=== PATIENT | male | born 1970 | race Caucasian/White ===

== ENCOUNTER 2024-06-14 06:18 | Outpatient (REF) | payer MEDICARE, SELFPAY ==
[2024-06-14 06:24] LABS: MANUAL DIFF FLAG NO
--- OUTSIDE RECORDS SUMMARY | 2024-06-14 06:24 | XMS_ITS | Clinical Summary ---
Author Organization Unknown Care Team Providers Care Chair Maker Name Role Phone SAMIR BAH MD, ELDER Unavailable Unava virgen BURROWS RN, MAURIZIO Unavailable Unavailable KEATON PT, MARV Unavailable Unavailable FRIGON OT, JUSTO Unavailable Unavailable JAMAR RN, NAHID Unavailable Unavailable Payers Payer Name Policy Type Policy Number Effective Date Expira tion Date MEDICARE.NGS.PDGM [id number] Problems Condition Name Condition Details Condition Category Status Onset Date Resolution Date Last Treatment Date Treating Clinician Comments OTHER COMPLICATION S OF AMPUTATION STUMP Active 2021-06 00:00: 00 HYP CHR KIDNEY DISEASE W STAGE 5 CHR KIDNEY DISEASE OR ESRD Active 03-12 00:00: 00 TYPE 1 DIABETES MELLITUS W DIABETIC CHRONIC KIDNEY DISEASE Active 03-12 00:00: 00 END STAGE RENAL DISEASE Active 03-12 00:00: 00 ANEMIA IN CHRONIC KIDNEY DISEASE Active 03-12 00:00: 00 TYPE 1 DIABETES MELLITUS WITH DIABETIC NEUROPATHY, UNSP Active 03-12 00:00: 00 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 Active 03-12 00:00: 00 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 Active 03-12 00:00: 00 DEPRESSION, UNSPECIFIED Active 03-12 00:00: 00 NEPHROTIC SYNDROME WITH UNSPECIFIED MORPHOLOGIC CHANGES Active 03-12 00:00: 00 SECONDARY HYPERPARATHY ROIDISM OF RENAL ORIGIN Active 03-12 00:00: 00 HYPERLIPIDEM IA, UNSPECIFIED Active 03-12 00:00: 00 DEPENDENCE ON RENAL DIALYSIS Active 03-12 00:00: 00 ACQUIRED ABSENCE OF LEFT LEG ABOVE KNEE Active 03-12 00:00: 00 ACQUIRED ABSENCE OF RIGHT LEG ABOVE KNEE Active 03-12 00:00: 00 PRESSFITTER (CURRENT) USE OF ANTIBIOTICS Active 2021-06- 00:00: 00 PRESSFITTER (CURRENT) USE OF OPIATE ANALGESIC Active 03-12 00:00: 00 Allergies, Adverse Reactions, Alerts Allergy Name Allergy Type Status Severity Reaction(s) Onset Date Inactive Date Treating Clinician Comments ACETAMINOPHE N Propensity to adverse reactions Active 02-25 18:15: 00 CEPHALEXIN Propensity to adverse reactions Active 02-25 18:15: 19 CEPHALOSPORI NS Propensity to adverse reactions Active 02-25 18:16: 12 IBUPROFEN Propensity to adverse reactions Active 02-25 18:16: 27 ASPIRIN Propensity to adverse reactions Active 02-25 18:17: 13 NSAIDS Propensity to adverse reactions Active 02-25 18:17: 26 Medications Ordered Medication Name Filled Medication Name Start Date Stop Date Current Medication? Ordering Clinician Indication Dosage Frequency Signature (SIG) Comments Components atenolol 25 mg tablet 01-15 00:00: 00 03-12 00:00 :00 No [id number] HTN 1 tablet DAILY 1 tablet DAILY (route: oral) Med Classific ation: Cardiovas cular Therapy Agents Ativan 0.5 mg tablet 01-15 00:00: 00 03-12 00:00 :00 No [id number] ANXIETY 1 tablet DAILY 1 tablet DAILY (route: oral) Med Classific ation: Central Nervous System Agents atorvastati n 40 mg tablet 01-15 00:00: 00 03-12 00:00 :00 No [id number] HLD 2 tablet DAILY 2 tablet DAILY (route: oral) Med Classific ation: Cardiovas cular Therapy Agents Auryxia 210 mg iron tablet 01-15 00:00: 00 03-12 00:00 :00 No [id number] SUPPLEMENT 1 tablet WITH MEALS 1 tablet WITH MEALS (route: oral) Med Classific ation: Genitouri nary Therapy calcitriol 0.25 mcg capsule 01-15 00:00: 00 03-12 00:00 :00 No [id number] SUPPLEMENT 1 capsule DAILY 1 capsule DAILY (route: oral) Med Classific ation: Electroly te Balance-N utritiona l Products Cartia XT 240 mg capsule,ext ended release 01-15 00:00: 00 03-12 00:00 :00 No [id number] HTN 1 capsule DAILY 1 capsule DAILY (route: oral) Med Classific ation: Cardiovas cular Therapy Agents coenzyme Q10 200 mg capsule 01-15 00:00: 00 03-12 00:00 :00 No [id number] SUPPLEMENT 1 capsule DAILY 1 capsule DAILY (route: oral) Med Classific ation: Alternati ve Therapy diazepam 2 mg tablet 01-15 00:00: 00 Yes [id number] NEUROPATHY 1-2 tablet BEDTIME 1-2 tablet BEDTIME (route: oral) Med Classific ation: Central Nervous System Agents duloxetine 20 mg capsule,del ayed release 01-15 00:00: 00 03-12 00:00 :00 No [id number] DEPRESSION 2 capsule DAILY 2 capsule DAILY (route: oral) Med Classific ation: Central Nervous System Agents insulin lispro (U-100) 100 unit/mL subcutane s pen 01-15 00:00: 00 03-12 00:00 :00 No [id number] DM 65 unit DAILY 65 unit DAILY (route: subcutaneo ) Med Classific ation: Endocrine omeprazole 20 mg capsule,del ayed release 01-15 00:00: 00 03-12 00:00 :00 No [id number] GERD 1 capsule DAILY 1 capsule DAILY (route: oral) Med Classific ation: Gastroint estinal Therapy Agents ondansetron 4 mg disintegrat ing tablet 01-15 00:00: 00 03-12 00:00 :00 No [id number] NAUSEA 1 tablet EVERY 8 HOURS 1 tablet EVERY 8 HOURS (route: oral) Med Classific ation: Gastroint estinal Therapy Agents oxycodone 5 mg capsule 01-15 00:00: 00 03-12 00:00 :00 No [id number] PAIN 1 capsule EVERY 4 HOURS 1 capsule EVERY 4 HOURS (route: oral) Med Classific ation: Analgesic , Anti-infl ammatory or Antipyret ic Reglan 5 mg tablet 01-15 00:00: 00 03-12 00:00 :00 No [id number] CKD 1 tablet 3 TIMES DAILY 1 tablet 3 TIMES DAILY (route: oral) Med Classific ation: Gastroint estinal Therapy Agents Semglee (insulin glargine-yf gn) 100 unit/mL subcutaneou s solution 01-15 00:00: 00 03-12 00:00 :00 No [id number] DM 32 unit DAILY 32 unit DAILY (route: subcutaneo us) Med Classific ation: Endocrine torsemide 100 mg tablet 01-15 00:00: 00 03-12 00:00 :00 No [id number] FLUID 1 tablet DAILY 1 tablet DAILY (route: oral) Med Classific ation: Cardiovas cular Therapy Agents vitamin B complex tablet 01-15 00:00: 00 03-12 00:00 :00 No [id number] SUPPLEMENT 1 tablet DAILY 1 tablet DAILY (route: oral) Med Classific ation: Electroly te Balance-N utritiona l Products vitamin E 400 unit capsule 01-15 00:00: 00 03-12 00:00 :00 No [id number] SUPPLEMENT 1 capsule DAILY 1 capsule DAILY (route: oral) Med Classific ation: Electroly te Balance-N utritiona l Products Baqsimi 3 mg/actuatio n nasal spray 03-12 00:00: 00 Yes [id number] DM 1 spray NEEDED 1 spray A S NEEDED (route: nasal) Med Classific ation: Endocrine sodium bicarbonate 650 mg tablet 03-12 00:00: 00 05-07 00:00 :00 No [id number] SUPPLEMENT 1 tablet 2 TIMES DAILY 1 tablet 2 TIMES DAILY (route: oral) Med Classific ation: Gastroint estinal Therapy Agents Floranex 1 million cell tablet 03-12 00:00: 00 05-07 00:00 :00 No [id number] SUPPLEMENT 1 tablet 3 TIMES DAILY 1 tablet 3 TIMES DAILY (route: oral) Med Classific ation: Gastroint estinal Therapy Agents methocarbam ol 500 mg tablet 03-12 00:00: 00 05-07 00:00 :00 No [id number] PAIN 2 tablet 3 TIMES DAILY 2 tablet 3 TIMES DAILY (route: oral) Med Classific ation: Locomotor System oxycodone 10 mg tablet 2021-06 00:00: 00 Yes [id number] PAIN 1 tablet EVERY 4 HOURS 1 tablet EVERY 4 HOURS (route: oral) Med Classific ation: Analgesic , Anti-infl ammatory or Antipyret ic Xtampza ER 27 mg capsule sprinkle 2021-06 00:00: 00 05-07 00:00 :00 No [id number] PAIN 1 capsule 2 TIMES DAILY 1 capsule 2 TIMES DAILY (route: oral) Med Classific ation: Analgesic , Anti-infl ammatory or Antipyret ic amoxicillin 500 mg-potassiu m clavulanate 125 mg tablet 2021-06 00:00: 00 Yes [id number] INFECTION 1 tablet DAILY 1 tablet DAILY (route: oral) Med Classific ation: Anti-Infe ctive Agents atenolol 25 mg tablet 2021-06 00:00: 00 Yes [id number] HYN 1 tablet DAILY 1 tablet DAILY (route: oral) Med Classific ation: Cardiovas cular Therapy Agents Ativan 0.5 mg tablet 2021-06 00:00: 00 Yes [id number] ANXIETY 1 tablet DAILY 1 tablet DAILY (route: oral) Med Classific ation: Central Nervous System Agents atorvastati n 80 mg tablet 2021-06 00:00: 00 Yes [id number] HLD 1 tablet DAILY 1 tablet DAILY (route: oral) Med Classific ation: Cardiovas cular Therapy Agents Auryxia 210 mg iron tablet 2021-06 00:00: 00 Yes [id number] SUPPLEMENT 1 tablet 3 TIMES DAILY 1 tablet 3 TIMES DAILY (route: oral) Med Classific ation: Genitouri nary Therapy B Complex-Vit robison B12 tablet 2021-06 00:00: 00 Yes [id number] SUPPLEMENT 1 tablet DAILY 1 tablet DAILY (route: oral) Med Classific ation: Electroly te Balance-N utritiona l Products calcitriol 0.25 mcg capsule 2021-06 00:00: 00 Yes [id number] SUPPLEMENT 1 capsule DAILY 1 capsule DAILY (route: oral) Med Classific ation: Electroly te Balance-N utritiona l Products coenzyme Q10 200 mg capsule 2021-06 00:00: 00 Yes [id number] SUPPLEMENT 1 capsule DAILY 1 capsule DAILY (route: oral) Med Classific ation: Alternati ve Therapy DILT-XR 240 mg capsule, extended release 2021-06 00:00: 00 Yes [id number] HTN 1 capsule DAILY 1 capsule DAILY (route: oral) Med Classific ation: Cardiovas cular Therapy Agents duloxetine 20 mg capsule,del ayed release 2021-06 00:00: 00 Yes [id number] DEPRESSION 2 capsule DAILY 2 capsule DAILY (route: oral) Med Classific ation: Central Nervous System Agents Glucagon Emergency Kit 1 mg solution for injection 2021-06 00:00: 00 Yes [id number] DM 1 mg DAILY 1 mg MARYSOL Y (route: injection) Med Classific ation: Endocrine Lantus Solostar U-100 Insulin 100 unit/mL (3 mL) subcutaneou s pen 2021-06 00:00: 00 Yes [id number] DM 32 unit BEDTIME 32 unit BEDTIME (route: subcutaneo us) Med Classific ation: Endocrine oxycodone 5 mg capsule 2021-06 00:00: 00 Yes [id number] PAIN 1 capsule DAILY 1 capsule DAILY (route: oral) Med Classific ation: Analgesic , Anti-infl ammatory or Antipyret ic torsemide 100 mg tablet 2021-06 00:00: 00 Yes [id number] FLUI 1 tablet DAILY 1 tablet DAILY (route: oral) Med Classific ation: Cardiovas cular Therapy Agents vitamin E (dl, acetate) 180 mg (400 unit) capsule 2021-06 00:00: 00 Yes [id number] SUPPLEMENT 1 capsule DAILY 1 capsule DAILY (route: oral) Med Classific ation: Electroly te Balance-N utritiona l Products Vital Signs Vital Name Observation Time Observation Value Commen ts Temperature 2022-05-07 12:55:00.000 97.1 [degF] Temperature 2022-04-30 12:26:00.000 98.2 [degF] Temperature 2022-04-29 13:13:00.000 97.3 [degF] Temperature 2022-04-24 15:31:00.000 97.4 [degF] Temperature 2022-04-15 13:33:00.000 98.2 [degF] Temperature 2022-04-08 15:45:00.000 98.2 [degF] Temperature 2022-04-01 13:10:00.000 97 [degF] Temperature 2022-03-27 12:08:00.000 97.3 [degF] Temperature 2022-03-23 12:03:00.000 97.2 [degF] Temperature 2022-03-20 17:03:00.000 97.7 [degF] Temperature 2022-03-16 16:49:00.000 98.7 [degF] Temperature 2022-03-12 14:20:00.000 97.8 [degF] BMI (%) 2022-05-07 12:20:02.000 20 kg/m2 BMI (%) 2022-03-12 13:38:25.000 20 kg/m2 Height 2022-05-07 12:19:55.000 72 [in_us] Height 2022-03-12 13:38:13.000 72 [in_us] Pulse 2022-05-07 12:55:00.000 54 /min Pulse 2022-04-30 12:26:00.000 52 /min Pulse 2022-04-29 13:13:00.000 74 /min Pulse 2022-04-24 15:31:00.000 58 /min Pulse 2022-04-15 13:34:00.000 60 /min Pulse 2022-04-08 15:45:00.000 50 /min Pulse 2022-04-01 13:10:00.000 65 /min Pulse 2022-03-27 12:08:00.000 97 /min Pulse 2022-03-23 12:03:00.000 61 /min Pulse 2022-03-20 17:03:00.000 57 /min Pulse 2022-03-16 16:49:00.000 55 /min Pulse 2022-03-16 14:09:00.000 60 /min Pulse 2022-03-12 14:20:00.000 51 /min O2 Saturation (%) 2022-05-07 12:55:00.000 96 % O2 Saturation (%) 2022-04-30 12:26:00.000 98 % O2 Saturation (%) 2022-04-29 13:13:00.000 95 % O2 Saturation (%) 2022-04-24 15:31:00.000 100 % O2 Saturation (%) 2022-04-15 13:33:00.000 99 % O2 Saturation (%) 2022-04-08 15:45:00.000 99 % O2 Saturation (%) 2022-04-01 13:10:00.000 98 % O2 Saturation (%) 2022-03-27 12:08:00.000 96 % O2 Saturation (%) 2022-03-23 12:03:00.000 96 % O2 Saturation (%) 2022-03-20 17:03:00.000 96 % O2 Saturation (%) 2022-03-16 16:49:00.000 95 % O2 Saturation (%) 2022-03-16 14:09:00.000 96 % O2 Saturation (%) 2022-03-12 14:20:00.000 93 % Respirations 2022-05-07 12:55:00.000 18 /min Respirations 2022-04-30 12:26:00.000 16 /min Respirations 2022-04-29 13:13:00.000 18 /min Respirations 2022-04-24 15:31:00.000 18 /min Respirations 2022-04-15 13:33:00.000 18 /min Respirations 2022-04-08 15:45:00.000 16 /min Respirations 2022-04-01 13:10:00.000 18 /min Respirations 2022-03-27 12:08:00.000 18 /min Respirations 2022-03-23 12:03:00.000 18 /min Respirations 2022-03-20 17:03:00.000 18 /min Respirations 2022-03-16 16:49:00.000 17 /min Respirations 2022-03-16 14:09:00.000 18 /min Respirations 2022-03-12 14:20:00.000 18 /min Weight (lbs) 2022-05-07 12:20:02.000 148 [lb_av] Weight (lbs) 2022-03-12 13:38:25.000 150 [lb_av] Systolic Blood Pressure 2022-05-07 12:55:00.000 130 mm [Hg] Systolic Blood Pressure 2022-04-30 12:26:00.000 110 mm [Hg] Systolic Blood Pressure 2022-04-29 13:13:00.000 122 mm [Hg] Systolic Blood Pressure 2022-04-24 15:31:00.000 120 mm [Hg] Systolic Blood Pressure 2022-04-15 13:33:00.000 125 mm [Hg] Systolic Blood Pressure 2022-04-08 15:45:00.000 120 mm [Hg] Systolic Blood Pressure 2022-04-01 13:10:00.000 124 mm [Hg] Systolic Blood Pressure 2022-03-27 12:08:00.000 122 mm [Hg] Systolic Blood Pressure 2022-03-23 12:03:00.000 118 mm [Hg] Systolic Blood Pressure 2022-03-20 17:03:00.000 118 mm [Hg] Systolic Blood Pressure 2022-03-16 16:49:00.000 126 mm [Hg] Systolic Blood Pressure 2022-03-16 14:09:00.000 115 mm [Hg] Systolic Blood Pressure 2022-03-12 14:20:00.000 124 mm [Hg] Diastolic Blood Pressure 2022-05-07 12:55:00.000 66 mm [Hg] Diastolic Blood Pressure 2022-04-30 12:26:00.000 60 mm [Hg] Diastolic Blood Pressure 2022-04-29 13:13:00.000 74 mm [Hg] Diastolic Blood Pressure 2022-04-24 15:31:00.000 75 mm [Hg] Diastolic Blood Pressure 2022-04-15 13:33:00.000 59 mm [Hg] Diastolic Blood Pressure 2022-04-08 15:45:00.000 84 mm [Hg] Diastolic Blood Pressure 2022-04-01 13:10:00.000 68 mm [Hg] Diastolic Blood Pressure 2022-03-27 12:08:00.000 64 mm [Hg] Diastolic Blood Pressure 2022-03-23 12:03:00.000 62 mm [Hg] Diastolic Blood Pressure 2022-03-20 17:03:00.000 64 mm [Hg] Diastolic Blood Pressure 2022-03-16 16:49:00.000 64 mm [Hg] Diastolic Blood Pressure 2022-03-16 14:09:00.000 60 mm [Hg] Diastolic Blood Pressure 2022-03-12 14:20:00.000 64 mm [Hg] Plan of Treatment Planned Activity Planned Date Details Comments Future Scheduled Test SKILLED NU RSE TO ASSESS, EVALUATE, AND DEVELOP AN INDIVIDUALIZED PLAN OF CARE. AGENCY MAY ACCEPT ORDERS FROM CONSULTING PHYSICIANS SN TO OBSERVE/ASSESS RISK FOR FALLS AND INSTRUCT IN FALL PREVENTION, HOME SAFETY, MEDICATION MANAGEMENT, INFECTION PREVENTION, AND NUTRITION MANAGEMENT. SN MAY PERFORM O2 SATURATION LEVEL ON ADMISSION AND PRN FOR TO ASSESS PATIENT, WITH NOTIFICATION TO THE PHYSICIAN IF SATURATION IS 90% IN THE ABSENCE OF MORE SPECIFIC PARAMETERS FROM THE PHYSICIAN. AGENCY MAY PERFORM A RESUMPTION OF CARE VISIT FOLLOWING ANY HOSPITAL ADMISSION. SKILLED NURSE TO ASSESS/EVALUATE CO-MORBID CONDITIONS AND ANY NEW CONDITIONS THAT PRESENT THEMSELVES DURING THIS EPISODE TO IDENTIFY CHANGES AND INTERVENE TO MINIMIZE COMPLICATIONS. LEFT [facility] FROM [facility] IN January ESRD [code = SKILLED NURSE TO ASSESS, EVALUATE, AND DEVELOP AN INDIVIDUALIZED PLAN OF CARE. AGENCY MAY ACCEPT ORDERS FROM CONSULTING PHYSICIANS SN TO OBSERVE/ASSESS RISK FOR FALLS AND INSTRUCT IN FALL PREVENTION, HOME SAFETY, MEDICATION MANAGEMENT, INFECTION PREVENTION, AND NUTRITION MANAGEMENT. SN MAY PERFORM O2 SATURATION LEVEL ON ADMISSION AND PRN FOR TO ASSESS PATIENT, WITH NOTIFICATION TO THE PHYSICIAN IF SATURATION IS 90% IN THE ABSENCE OF MORE SPECIFIC PARAMETERS FROM THE PHYSICIAN. AGENCY MAY PERFORM A RESUMPTION OF CARE VISIT FOLLOWING ANY HOSPITAL ADMISSION. SKILLED NURSE TO ASSESS/EVALUATE CO-MORBID CONDITIONS AND ANY NEW CONDITIONS THAT PRESENT THEMSELVES DURING THIS EPISODE TO IDENTIFY CHANGES AND INTERVENE TO MINIMIZE COMPLICATIONS. LEFT [facility] FROM [facility] IN JANUARY DM1 ESRD] Future Scheduled Test MEDICATION MANAGEMENT; SKILLED NURSE TO REVIEW MEDICATIONS FOR INTERACTIONS, EFFECTIVENESS OF DRUG THERAPY, AND SIGNS/SYMPTOMS OF ADVERSE REACTIONS. MAY INSTRUCT AND REINFORCE MEDICATION TEACHING RELATED TO THE USE OF MEDICATIONS, DOSAGE, FREQUENCY, PURPOSE, SIDE EFFECTS, AND TO REPORT COMPLICATIONS. [code = MEDICATION MANAGEMENT; SKILLED NURSE TO REVIEW MEDICATIONS FOR INTERACTIONS, EFFECTIVENESS OF DRUG THERAPY, AND SIGNS/SYMPTOMS OF ADVERSE REACTIONS. MAY INSTRUCT AND REINFORCE MEDICATION TEACHING RELATED TO THE USE OF MEDICATIONS, DOSAGE, FREQUENCY, PURPOSE, SIDE EFFECTS, AND TO REPORT COMPLICATIONS.] Future Scheduled Test RISK FOR H OSPITALIZATION; SKILLED NURSE TO INSTRUCT PATIENT/CAREGIVER ON RISK FOR HOSPITALIZATION, TEACH SIGNS AND SYMPTOMS THAT PUT PATIENT AT RISK, WHEN TO NOTIFY NURSE OF COMPLICATIONS/DECLINE, AND WHEN TO CALL 911. SKILLED NURSE TO INSTRUCT PATIENT/CAREGIVER ON: SIGNS AND SYMPTOMS TO BE ON ALERT FOR EARLY INTERVENTION, PRIOR TO NEEDING EMERGENCY SERVICES CALL [facility] NURSE TO KEEP MANAGER INTERNAL SYMPTOM REPORT FOR VISIBLE REFERENCE NOTIFY SKILLED NURSE/PHYSICIAN FOR DECLINE IN STATUS WHEN AND HOW TO CALL HOME HEALTH AGENCY FACILITATE PHYSICIAN FOLLOW UP APPOINTMENT IDENTIFY SOCIOECONOMIC CONCERNS AND MAKE APPROPRIATE REFERRAL NEEDED [code = RISK FOR HOSPITALIZATION; SKILLED NURSE TO INSTRUCT PATIENT/CAREGIVER ON RISK FOR HOSPITALIZATION, TEACH SIGNS AND SYMPTOMS THAT PUT PATIENT AT RISK, WHEN TO NOTIFY NURSE OF COMPLICATIONS/DECLINE, AND WHEN TO CALL 911. SKILLED NURSE TO INSTRUCT PATIENT/CAREGIVER ON: SIGNS AND SYMPTOMS TO BE ON ALERT FOR EARLY INTERVENTION, PRIOR TO NEEDING EMERGENCY SERVICES CALL [facility] NURSE TO KEEP MANAGER INTERNAL SYMPTOM REPORT FOR VISIBLE REFERENCE NOTIFY SKILLED NURSE/PHYSICIAN FOR DECLINE IN STATUS WHEN AND HOW TO CALL HOME HEALTH AGENCY FACILITATE PHYSICIAN FOLLOW UP APPOINTMENT IDENTIFY SOCIOECONOMIC CONCERNS AND MAKE APPROPRIATE REFERRAL NEEDED] Future Scheduled Test CARDIOVASC ULAR SYSTEM; SKILLED NURSE TO ASSESS AND TEACH RELATED TO ALTERED CARDIOVASCULAR STATUS TO MINIMIZE COMPLICATIONS AND REDUCE HOSPITALIZATION. [code = CARDIOVASCULAR SYSTEM; SKILLED NURSE TO ASSESS AND TEACH RELATED TO ALTERED CARDIOVASCULAR STATUS TO MINIMIZE COMPLICATIONS AND REDUCE HOSPITALIZATION.] Future Scheduled Test HYPERTENSI ON MANAGEMENT; SKILLED NURSE TO ASSESS/TEACH WARNING SIGNS AND SYMPTOMS TO AVOID HOSPITALIZATION. [code = HYPERTENSION MANAGEMENT; SKILLED NURSE TO ASSESS/TEACH WARNING SIGNS AND SYMPTOMS TO AVOID HOSPITALIZATION.] Future Scheduled Test SKILLED NU RSE TO PERFORM/TEACH INCISION CARE TO LEFT AKA AREA: IRRIGATE/CLEANSE WITH NS APPLY GAUZE AND ABD SECURE WITH LORENZA CHANGE DRESSING EVERY 3 DAYS A WEEK AND PRN FOR DISLODGEMENT [code = SKILLED NURSE TO PERFORM/TEACH INCISION CARE TO LEFT AKA AREA: IRRIGATE/CLEANSE WITH NS APPLY GAUZE AND ABD SECURE WITH LORENZA CHANGE DRESSING EVERY 3 DAYS A WEEK AND PRN FOR DISLODGEMENT ] Future Scheduled Test PAIN MANAG EMENT; SKILLED NURSE TO OBSERVE, ASSESS, AND PROVIDE EDUCATION ON PAIN MANAGEMENT TECHNIQUES. [code = PAIN MANAGEMENT; SKILLED NURSE TO OBSERVE, ASSESS, AND PROVIDE EDUCATION ON PAIN MANAGEMENT TECHNIQUES.] Future Scheduled Test DIABETES M ANAGEMENT; SKILLED NURSE FOR INSTRUCTIONS OF DIABETIC CARE TO INCLUDE: DIET LOW CARB SKIN CARE, SIGNS AND SYMPTOMS OF HYPO/HYPERGLYCEMIA, PROPER ADMINISTRATION OF DIABETIC MEDICATION. SKILLED NURSE TO INSTRUCT ON DIABETIC FOOT CARE AND MONITOR FOR SKIN LESIONS ON LOWER EXTREMITIES. BLOOD GLUCOSE TESTING 4X FREQ. SKILLED NURSE TO ASSESS PATIENT/CAREGIVER ABILITY TO PERFORM AND RECORD BLOOD GLUCOSE TESTING ORDERED AND TO REPORT ABNORMAL FINDINGS TO PHYSICIAN. SKILLED NURSE MAY PERFORM BLOOD GLUCOSE TEST NEEDED. SKILLED NURSE TO REPORT TO PHYSICIAN BLOOD GLUCOSE READINGS GREATER THAN 500 OR LESS THAN 60 SKILLED NURSE TO INSTRUCT PATIENT ON IMPORTANCE OF HGBA1C MONITORING, KIDNEY FUNCTION TEST, EYE AND FOOT EXAMS. [code = DIABETES MANAGEMENT; SKILLED NURSE FOR INSTRUCTIONS OF DIABETIC CARE TO INCLUDE: DIET LOW CARB SKIN CARE, SIGNS AND SYMPTOMS OF HYPO/HYPERGLYCEMIA, PROPER ADMINISTRATION OF DIABETIC MEDICATION. SKILLED NURSE TO INSTRUCT ON DIABETIC FOOT CARE AND MONITOR FOR SKIN LESIONS ON LOWER EXTREMITIES. BLOOD GLUCOSE TESTING 4X FREQ. SKILLED NURSE TO ASSESS PATIENT/CAREGIVER ABILITY TO PERFORM AND RECORD BLOOD GLUCOSE TESTING ORDERED AND TO REPORT ABNORMAL FINDINGS TO PHYSICIAN. SKILLED NURSE MAY PERFORM BLOOD GLUCOSE TEST NEEDED. SKILLED NURSE TO REPORT TO PHYSICIAN BLOOD GLUCOSE READINGS GREATER THAN 500 OR LESS THAN 60 SKILLED NURSE TO INSTRUCT PATIENT ON IMPORTANCE OF HGBA1C MONITORING, KIDNEY FUNCTION TEST, EYE AND FOOT EXAMS.] Future Scheduled Test FALL REDUC TION MANAGEMENT; NURSING TO PROVIDE SKILLED ASSESSMENT, EDUCATION, AND INTERVENTION TO IDENTIFY FALL RISK FACTORS SUCH MEDICATIONS THAT MAY CAUSE DIZZINESS, CHRONIC DISEASES, PSYCHOLOGICAL FACTORS, AND EMPOWER/EDUCATE PATIENT/CAREGIVER TO MINIMIZE FALL RISK. [code = FALL REDUCTION MANAGEMENT; NURSING TO PROVIDE SKILLED ASSESSMENT, EDUCATION, AND INTERVENTION TO IDENTIFY FALL RISK FACTORS SUCH MEDICATIONS THAT MAY CAUSE DIZZINESS, CHRONIC DISEASES, PSYCHOLOGICAL FACTORS, AND EMPOWER/EDUCATE PATIENT/CAREGIVER TO MINIMIZE FALL RISK.] Future Scheduled Test PHYSICAL T HERAPIST TO EVALUATE FOR GAIT BALANCE AND STRENGTHEN [code = PHYSICAL THERAPIST TO EVALUATE FOR GAIT BALANCE AND STRENGTHEN ] Future Scheduled Test OCCUPATION AL THERAPIST TO EVALUATE FOR ADL INDENDENCE [code = OCCUPATIONAL THERAPIST TO EVALUATE FOR ADL INDENDENCE ] Future Scheduled Test PRN VISITS ; PATIENT REQUIRES 3 PRN HALF-WAY VISITS FOR COMPLICATIONS RELATED TO WOUND STATUS [code = PRN VISITS; PATIENT REQUIRES 3 PRN HALF-WAY VISITS FOR COMPLICATIONS RELATED TO WOUND STATUS ] Future Scheduled Test DIALYSIS C ENTER; ALL NEEDS RELATED TO ESRD WILL BE MANAGED BY DIALYSIS CENTER. PATIENT RECEIVES DIALYSIS AT MWF AT HOME PERITONWAL ON OWN. [code = DIALYSIS CENTER; ALL NEEDS RELATED TO ESRD WILL BE MANAGED BY DIALYSIS CENTER. PATIENT RECEIVES DIALYSIS AT MWF AT HOME PERITONWAL ON OWN.] Future Scheduled Test PT EVALUAT ION PERFORMED. NO ADDITIONAL VISITS REQUIRED. PROVIDED SKILLED INTERVENTION INCLUDING HOME SAFETY [code = PT EVALUATION PERFORMED. NO ADDITIONAL VISITS REQUIRED. PROVIDED SKILLED INTERVENTION INCLUDING HOME SAFETY ] Goal 2022-05-07 Patient Goal - HEAL MY WOUND Goal 2022-05-10 Patient Goal - HEAL MY WOUND Goal Provider Goal - A PLAN OF CARE WILL BE ESTABLISHED THAT MEETS THE PATIENTS NEEDS. PATIENT WILL DEMONSTRATE OXYGEN SATURATION WITHIN NORMAL LIMITS OR PATIENTS OPTIMAL LEVEL ESTABLISHED BY THE PHYSICIAN THROUGHOUT CARE. CHANGES TO CO-MORBID CONDITIONS AND ANY NEW CONDITIONS WILL BE IDENTIFIED AND REPORTED TO THE PHYSICIAN. Goal Provider Goal - PATIENT/CAREGIVER TO VERBALIZE, AND CONSISTENTLY DEMONSTRATE EFFECTIVE, SAFE MANAGEMENT OF MEDICATION INCLUDING KNOWLEDGE OF EFFECTIVENESS, POTENTIAL SIDE EFFECTS AND DRUG REACTIONS AND WHEN TO CONTACT THE APPROPRIATE CARE PROVIDER. PATIENT/CAREGIVER WILL BE ABLE TO VERBALIZE UNDERSTANDING OF MEDICATION REGIMEN AND ACCURATELY TAKE MEDICATIONS PRESCRIBED WITHOUT ADVERSE EFFECTS BY DC Goal Provider Goal - PATIENT/CAREGIVER WILL VERBALIZE UNDERSTANDING OF SIGNS AND SYMPTOMS THAT PUT THE PATIENT AT RISK FOR HOSPITALIZATION, WHEN TO NOTIFY SN OF COMPLICATIONS/DECLINE AND WHEN TO CALL 911. Goal Provider Goal - PATIENT / CAREGIVER WILL VERBALIZE/DEMONSTRATE UNDERSTANDING OF MEASURES TO MANAGE ALTERED CARDIOVASCULAR STATUS BY DC Goal Provider Goal - PATIENT / CAREGIVER WILL VERBALIZE/DEMONSTRATE AN ABILITY TO ADHERE TO SELF-MANAGEMENT OF HTN TO MINIMIZE COMPLICATIONS AND AVOID HOSPITALIZATION BY END OF EPISODE. Goal Provider Goal - PATIENT / CAREGIVER WILL VERBALIZE / DEMONSTRATE ABILITY TO PERFORM WOUND CARE. WOUND STATUS WILL IMPROVE EVIDENCED BY A DECREASE IN SIZE, DRAINAGE, ABSENCE OF INFECTION, AND DECREASED PAIN BY DC Goal Provider Goal - PATIENT / CAREGIVER WILL VERBALIZE / DEMONSTRATE UNDERSTANDING OF PAIN CONTROL MEASURES BY NE Goal Provider Goal - PATIENT / CAREGIVER WILL VERBALIZE / DEMONSTRATE AN ABILITY TO ADHERE TO SELF-MANAGEMENT OF DIABETES MANAGEMENT BY DC Goal Provider Goal - PATIENT/CAREGIVER ABLE TO IDENTIFY FALL RISK FACTORS AND IMPLEMENT STRATEGIES TO MINIMIZE FALL RISK. PATIENT/CAREGIVER WILL VERBALIZE/DEMONSTRATE AN ABILITY TO ADHERE TO FALL REDUCTION SELF MANAGEMENT AND LIFE-STYLE CHANGES AT DISCHARGE. PERSONAL GOAL(S) STATED BY PATIENT/CAREGIVER WILL BE MET BY DC [place] Provider Goal - Goal Provider Goal - Goal Provider Goal - Goal Provider Goal - Goal Provider Goal - Reason for Visit PATIENT IN FACILITY AT END OF EPISODE Encounters Start Date/Time End Date/Time Encounter Type Admission Type Attending Clinicians Care Facility Care Department Encounter ID Discharge Date Discharge Status Discharge Condition Discharge Reason Percent Goals Met 2022-03-12 00:00:00 2022-05-10 00:00:00 Outpatient NAHID ANDREWS [facility] [id number] 2022-05-10 00:00:00 DISCHARGED /TRANSFERR ED TO A SHORT-TERM [facility] PATIENT IN FACILITY AT END OF EPISODE HH ONLY - TRANSFER TO HOSPITAL 100.00
[2024-06-14 06:39] LABS: Basophils Absolute Auto 0.1 X10*3/uL (0.0-0.2); Basophils Percent Auto 1.4 % (0-2); Eosinophils Absolute Auto 0.3 X10*3/uL (0.0-0.4); Eosinophils Percent Auto 5.1 % (0-4); Hematocrit 31.5 % (42.0-52.0); Hemoglobin 10.5 g/dl (14.0-18.0); Imm Gran Abs Auto 0.03 X10*3/uL (0.00-0.03); Imm Gran Pct Auto 0.5 % (0.0-0.4); Lymphocytes Absolute Auto 1.4 X10*3/uL (1.2-4.9); Mean Corpuscular HGB Conc 33.3 g/dl (31.0-36.0); Mean Corpuscular Hemoglobin 31.2 pg (27.0-33.0); Mean Corpuscular Volume 93.5 fL (80.0-98.0); Mean Platelet Volume 10.6 fL (9.4-12.4); Monocytes Percent Auto 15.9 % (2-11); Neutrophils Absolute Auto 3.4 x10*3/uL (2.0-8.3); Neutrophils Percent Auto 54.1 % (45-73); Platelet Count 315 X10*3/uL (160-400); Red Blood Count 3.37 X10*6/uL (4.60-5.80); Red Cell Distribution Width 14.7 % (11.0-16.0); White Blood Count 6.2 X10*3/uL (4.8-10.8)
[2024-06-14 06:44] LABS: INTERNATIONAL NORM RATIO 3.5 (0.9-1.1); Prothrombin Time 41.2 SEC (10.9-12.4)
[2024-06-14 06:55] LABS: Alanine Aminotransferase 19 U/L (0-40); Albumin Level 3.1 g/dL (3.5-5.0); Alkaline Phosphatase 99 U/L (39-117); Anion Gap 12 (12-20); Aspartate Amino Transferase 25 U/L (5-37); Bilirubin Total 0.3 mg/dL (0.0-1.0); Blood Urea Nitrogen 21 mg/dL (9-16); Calcium 9.1 mg/dL (8.4-10.2); Carbon Dioxide 26 mmol/L (22-29); Chloride 93 mmol/L (96-108); Estimated Glomerular Filt Rate 17; Glucose Random 76 mg/dL (60-115); Potassium 3.4 mmol/L (3.3-5.1); Sodium 128 mmol/L (135-145); Total Protein 5.7 g/dL (6.5-8.0)
== END 2024-06-14 06:19 | disposition home or self-care (01) ==
LOC: HO.MMNH1L 06:18
PROVIDERS: Visit Provider Nurse Practitioner
DX: M62.59 Muscle wasting and atrophy, not elsewhere classified, multiple sites (principal); N18.6 End stage renal disease
CPT/HCPCS: 36415; 80053; 85025; 85610

== ENCOUNTER 2024-06-15 05:49 | Outpatient (REF) | payer MEDICARE, SELFPAY ==
--- OUTSIDE RECORDS SUMMARY | 2024-06-15 05:51 | XMS_ITS | Clinical Summary ---
Author Organization Unknown Care Team Providers Care Revenue Manager Name Role Phone SAMIR BAH MD, ELDER Unavailable Unava virgen BURROWS RN, MAURIZIO Unavailable Unavailable KEATON PT, MARV Unavailable Unavailable FRIGON OT, JUSTO Unavailable Unavailable JAMAR RN, NAHID Unavailable Unavailable Payers Payer Name Policy Type Policy Number Effective Date Expira tion Date MEDICARE.NGS.PDGM [id number] Problems Condition Name Condition Details Condition Category [...] LEG ABOVE KNEE Active 03-12 00:00: 00 ECHOCARDIOGRAPHER (CURRENT) USE OF ANTIBIOTICS Active 2021-06- 00:00: 00 ECHOCARDIOGRAPHER (CURRENT) USE OF OPIATE ANALGESIC Active 03-12 [...] 01-15 00:00: 00 03-12 00:00 :00 No [id number] HTN 1 tablet DAILY 1 tablet DAILY (route: oral) Med Classific ation: Cardiovas cular Therapy Agents Ativan 0.5 mg tablet 01-15 00:00: 00 03-12 00:00 :00 No [id number] ANXIETY 1 tablet DAILY 1 tablet DAILY (route: oral) Med Classific ation: Central Nervous System Agents atorvastati n 40 mg tablet 01-15 00:00: 00 03-12 00:00 :00 No [id number] HLD 2 tablet DAILY 2 tablet DAILY (route: oral) Med Classific ation: Cardiovas cular Therapy Agents Auryxia 210 mg iron tablet 01-15 00:00: 00 03-12 00:00 :00 No [id number] SUPPLEMENT 1 tablet WITH MEALS 1 tablet WITH MEALS (route: oral) Med Classific ation: Genitouri nary Therapy calcitriol 0.25 mcg capsule 01-15 00:00: 00 03-12 00:00 :00 No [id number] SUPPLEMENT 1 capsule DAILY 1 capsule DAILY (route: oral) Med Classific ation: Electroly te Balance-N utritiona l Products Cartia XT 240 mg capsule,ext ended release 01-15 00:00: 00 03-12 00:00 :00 No [id number] HTN 1 capsule DAILY 1 capsule DAILY (route: oral) Med Classific ation: Cardiovas cular Therapy Agents coenzyme Q10 200 mg capsule 01-15 00:00: 00 03-12 00:00 :00 No [id number] SUPPLEMENT 1 capsule DAILY 1 capsule DAILY (route: oral) Med Classific ation: Alternati ve Therapy diazepam 2 mg tablet 01-15 00:00: 00 Yes [id number] NEUROPATHY 1-2 tablet BEDTIME 1-2 tablet BEDTIME (route: oral) Med Classific ation: Central Nervous System Agents duloxetine 20 mg capsule,del ayed release 01-15 00:00: 00 03-12 00:00 :00 No [id number] DEPRESSION 2 capsule DAILY 2 capsule DAILY (route: oral) Med Classific ation: Central Nervous System Agents insulin lispro (U-100) 100 unit/mL subcutane s pen 01-15 00:00: 00 03-12 00:00 :00 No [id number] DM 65 unit DAILY 65 unit DAILY (route: subcutaneo ) Med Classific ation: Endocrine omeprazole 20 mg capsule,del ayed release 01-15 00:00: 00 03-12 00:00 :00 No [id number] GERD 1 capsule DAILY 1 capsule DAILY (route: oral) Med Classific ation: Gastroint estinal Therapy Agents ondansetron 4 mg disintegrat ing tablet 01-15 00:00: 00 03-12 00:00 :00 No [id number] NAUSEA 1 tablet EVERY 8 HOURS 1 tablet EVERY 8 HOURS (route: oral) Med Classific ation: Gastroint estinal Therapy Agents oxycodone 5 mg capsule 01-15 00:00: 00 03-12 00:00 :00 No [id number] PAIN 1 capsule EVERY 4 HOURS 1 capsule EVERY 4 HOURS (route: oral) Med Classific ation: Analgesic , Anti-infl ammatory or Antipyret ic Reglan 5 mg tablet 01-15 00:00: 00 03-12 00:00 :00 No [id number] CKD 1 tablet 3 TIMES DAILY 1 tablet 3 TIMES DAILY (route: oral) Med Classific ation: Gastroint estinal Therapy Agents Semglee (insulin glargine-yf gn) 100 unit/mL subcutaneou s solution 01-15 00:00: 00 03-12 00:00 :00 No [id number] DM 32 unit DAILY 32 unit DAILY (route: subcutaneo us) Med Classific ation: Endocrine torsemide 100 mg tablet 01-15 00:00: 00 03-12 00:00 :00 No [id number] FLUID 1 tablet DAILY 1 tablet DAILY (route: oral) Med Classific ation: Cardiovas cular Therapy Agents vitamin B complex tablet 01-15 00:00: 00 03-12 00:00 :00 No [id number] SUPPLEMENT 1 tablet DAILY 1 tablet DAILY (route: oral) Med Classific ation: Electroly te Balance-N utritiona l Products vitamin E 400 unit capsule 01-15 00:00: 00 03-12 00:00 :00 No [id number] SUPPLEMENT 1 capsule DAILY 1 capsule DAILY (route: oral) Med Classific ation: Electroly te Balance-N utritiona l Products Baqsimi 3 mg/actuatio n nasal spray 03-12 00:00: 00 Yes [id number] DM 1 spray NEEDED 1 spray A S NEEDED (route: nasal) Med Classific ation: Endocrine sodium bicarbonate 650 mg tablet 03-12 00:00: 00 05-07 00:00 :00 No [id number] SUPPLEMENT 1 tablet 2 TIMES DAILY 1 tablet 2 TIMES DAILY (route: oral) Med Classific ation: Gastroint estinal Therapy Agents Floranex 1 million cell tablet 03-12 00:00: 00 05-07 00:00 :00 No [id number] SUPPLEMENT 1 tablet 3 TIMES DAILY 1 tablet 3 TIMES DAILY (route: oral) Med Classific ation: Gastroint estinal Therapy Agents methocarbam ol 500 mg tablet 03-12 00:00: 00 05-07 00:00 :00 No [id number] PAIN 2 tablet 3 TIMES DAILY 2 tablet 3 TIMES DAILY (route: oral) Med Classific ation: Locomotor System oxycodone 10 mg tablet 2021-06 00:00: 00 Yes [id number] PAIN 1 tablet EVERY 4 HOURS 1 tablet EVERY 4 HOURS (route: oral) Med Classific ation: Analgesic , Anti-infl ammatory or Antipyret ic Xtampza ER 27 mg capsule sprinkle 2021-06 00:00: 00 05-07 00:00 :00 No [id number] PAIN 1 capsule 2 TIMES DAILY 1 capsule 2 TIMES DAILY (route: oral) Med Classific ation: Analgesic , Anti-infl ammatory or Antipyret ic amoxicillin 500 mg-potassiu m clavulanate 125 mg tablet 2021-06 00:00: 00 Yes [id number] INFECTION 1 tablet DAILY 1 tablet DAILY (route: oral) Med Classific ation: Anti-Infe ctive Agents atenolol 25 mg tablet 2021-06 00:00: 00 Yes [id number] HYN 1 tablet DAILY 1 tablet DAILY (route: oral) Med Classific ation: Cardiovas cular Therapy Agents Ativan 0.5 mg tablet 2021-06 00:00: 00 Yes [id number] ANXIETY 1 tablet DAILY 1 tablet DAILY (route: oral) Med Classific ation: Central Nervous System Agents atorvastati n 80 mg tablet 2021-06 00:00: 00 Yes [id number] HLD 1 tablet DAILY 1 tablet DAILY (route: oral) Med Classific ation: Cardiovas cular Therapy Agents Auryxia 210 mg iron tablet 2021-06 00:00: 00 Yes [id number] SUPPLEMENT 1 tablet 3 TIMES DAILY 1 tablet 3 TIMES DAILY (route: oral) Med Classific ation: Genitouri nary Therapy B Complex-Vit robison B12 tablet 2021-06 00:00: 00 Yes [id number] SUPPLEMENT 1 tablet DAILY 1 tablet DAILY (route: oral) Med Classific ation: Electroly te Balance-N utritiona l Products calcitriol 0.25 mcg capsule 2021-06 00:00: 00 Yes [id number] SUPPLEMENT 1 capsule DAILY 1 capsule DAILY (route: oral) Med Classific ation: Electroly te Balance-N utritiona l Products coenzyme Q10 200 mg capsule 2021-06 00:00: 00 Yes [id number] SUPPLEMENT 1 capsule DAILY 1 capsule DAILY (route: oral) Med Classific ation: Alternati ve Therapy DILT-XR 240 mg capsule, extended release 2021-06 00:00: 00 Yes [id number] HTN 1 capsule DAILY 1 capsule DAILY (route: oral) Med Classific ation: Cardiovas cular Therapy Agents duloxetine 20 mg capsule,del ayed release 2021-06 00:00: 00 Yes [id number] DEPRESSION 2 capsule DAILY 2 capsule DAILY (route: oral) Med Classific ation: Central Nervous System Agents Glucagon Emergency Kit 1 mg solution for injection 2021-06 00:00: 00 Yes [id number] DM 1 mg DAILY 1 mg MARYSOL Y (route: injection) Med Classific ation: Endocrine Lantus Solostar U-100 Insulin 100 unit/mL (3 mL) subcutaneou s pen 2021-06 00:00: 00 Yes [id number] DM 32 unit BEDTIME 32 unit BEDTIME (route: subcutaneo us) Med Classific ation: Endocrine oxycodone 5 mg capsule 2021-06 00:00: 00 Yes [id number] PAIN 1 capsule DAILY 1 capsule DAILY (route: oral) Med Classific ation: Analgesic , Anti-infl ammatory or Antipyret ic torsemide 100 mg tablet 2021-06 00:00: 00 Yes [id number] FLUI 1 tablet DAILY 1 tablet DAILY (route: oral) Med Classific ation: Cardiovas cular Therapy Agents vitamin E (dl, acetate) 180 mg (400 unit) capsule 2021-06 00:00: 00 Yes [id number] SUPPLEMENT 1 capsule DAILY 1 capsule DAILY [...] INTERVENE TO MINIMIZE COMPLICATIONS. LEFT [facility] FROM [facility] IN January ESRD [code = SKILLED NURSE [...] INTERVENE TO MINIMIZE COMPLICATIONS. LEFT AKA FROM [facility] IN JANUARY DM1 ESRD] Future Scheduled Test [...] EMERGENCY SERVICES CALL [facility] NURSE TO KEEP ENVIRONMENTAL SCIENCE PROFESSOR SYMPTOM REPORT FOR VISIBLE REFERENCE NOTIFY SKILLED [...] EMERGENCY SERVICES CALL [facility] NURSE TO KEEP ENVIRONMENTAL SCIENCE PROFESSOR SYMPTOM REPORT FOR VISIBLE REFERENCE NOTIFY SKILLED [...] PRN VISITS ; PATIENT REQUIRES 3 PRN CARE HOME VISITS FOR COMPLICATIONS RELATED TO WOUND STATUS [code = PRN VISITS; PATIENT REQUIRES 3 PRN CARE HOME VISITS FOR COMPLICATIONS RELATED TO WOUND STATUS [...] DEMONSTRATE UNDERSTANDING OF PAIN CONTROL MEASURES BY ID Goal Provider Goal - PATIENT / CAREGIVER [...] 2022-03-12 00:00:00 2022-05-10 00:00:00 Outpatient NAHID ANDREWS [facility] [id number] 2022-05-10 00:00:00 DISCHARGED /TRANSFERR ED TO A SHORT-TERM [facility] PATIENT IN FACILITY AT END OF EPISODE HH ONLY - TRANSFER TO HOSPITAL 100.00
[2024-06-15 06:15] LABS: INTERNATIONAL NORM RATIO 4.5 (0.9-1.1); Prothrombin Time 52.5 SEC (10.9-12.4)
== END 2024-06-15 05:50 | disposition home or self-care (01) ==
LOC: HO.MMNH1L 05:49
PROVIDERS: Visit Provider Nurse Practitioner
DX: M62.59 Muscle wasting and atrophy, not elsewhere classified, multiple sites (principal); I23.6 Thrombosis of atrium, auricular appendage, and ventricle as current complications following acute myocardial infarction
CPT/HCPCS: 36415; 85610

== ENCOUNTER 2024-06-16 05:13 | Outpatient (REF) | payer MEDICARE, SELFPAY ==
[2024-06-16 05:28] LABS: INTERNATIONAL NORM RATIO 2.3 (0.9-1.1); Prothrombin Time 26.9 SEC (10.9-12.4)
== END 2024-06-16 05:14 | disposition home or self-care (01) ==
LOC: HO.MMNH1L 05:13
PROVIDERS: Visit Provider Nurse Practitioner
DX: I12.0 Hypertensive chronic kidney disease with stage 5 chronic kidney disease or end stage renal disease (principal); N18.6 End stage renal disease
CPT/HCPCS: 36415; 85610

== ENCOUNTER 2024-07-29 08:56 | Outpatient (REF) | payer MEDICARE, SELFPAY ==
--- OUTSIDE RECORDS SUMMARY | 2024-07-29 08:57 | XMS_ITS | Encounter Summary ---
Author Organization [facility], Address [address] [place] [address] Phone Care Team Providers Care Burr Bench Operator Name Role Phone Unavailable Primary Care Provider Unavailabl e Encounter Details Date Type Department Care Team (Late st Contact Info) Description 07/18/2024 Treatment [facility], [address] [place] [address] Samson Damico MD [address] [place] [place] [address] Social History Tobacco Use Types Packs/Day Years Used Date Smoking Tobacco: Never Assessed Sex and Gender Information Value Date Recorded Sex Assigned at Not on file Legal Sex Male 11:42 AM EST Gender Identity Not on file Sexual Orientation Not on file documented as of this encounter Miscellaneous Notes * Dialysis Note - Samson Damico MD - 07/18/2024 12:00 AM EST Patient: Gennaro Escobedo : 1970 Note Type: Dialysis Rounds-Comp Service Date: 07/18/2024 This patient was personally seen for a complete visit as part of routine monthly dialysis care for end stage renal disease. Primary cause of renal failure: E11.21 - Type 2 diabetes mellitus with diabetic nephropathy Attending Form Builder Helper: SAMSON DAMICO Dialysis Location: [facility] Schedule: Shift: 2 OVERVIEW COMMENTS: Presentation of multiple episodes of typical chest pain, and rising troponin levels, S/p Nitropaste. consistent with NSTEMI. Pt has multiple risk factors at baseline for a cardiac event. h/o NSTEMI on 05/2024, right atrial thrombus status post angio vac on 06/06 on Coumadin Cardiac catheterization on 06/19/2024, with multivessel disease. REPEAT cardiac catheterization on 07/04/2024, RCA PCI. S/p right thoracentesis with 2L if fluid removed 06/22 Cardiac MRI: Severe ischemic cardiomyopathy LV ejection fraction 24% and severely elevated LV end diastolic volume index 214 mL/sq m. Extensive infarcts are seen in the typical LAD and circumflex territories. In summary, the mid anteroseptal, apical septal, apical anterior, and apex segments are nonviable, with borderline viability of the mid anterior segment; the basal inferolateral and apical lateral segments are nonviable with borderline viability of the mid inferolateral segment; and there is is borderline viability of the apical inferior segment Seen by cardiac surgery. Not a candidate for CABG Initial plan was medical management, however patient continued to have intermittent anginal pain. 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 Non-ST elevated myocardial infarction (I21.4) 2. Type 1 diabetes mellitus with hypoglycemia without coma (E10.649) 3. Poorly controlled type 1 diabetes mellitus (E10.65) 4. Anemia of chronic disease (D63.8) 5. Systolic and diastolic CHF, chronic (I50.42) 6. PVD bilateral AKAs HOME MEDICATIONS Medications reviewed. DIALYSIS PRESCRIPTION Treatment Data EDW (kg): 59 BP AND FLUID ASSESSMENT Acceptable blood pressure. Fluid status acceptable. ADEQUACY ASSESSMENT Target met. Prescription compliance acceptable. ACCESS ASSESSMENT Current access is permanent and functioning well. COMMENTS: Left chest Permcath ANEMIA ASSESSMENT Anemia targets met. KATIE adjusted per protocol. Iron adjusted per protocol. BMM ASSESSMENT PTH within target. Phosphorus controlled. Counseled regarding dietary compliance. Calcium controlled. Bone and mineral metabolism parameters reviewed. NUTRITION ASSESSMENT Albumin not at goal. Potassium controlled. Referred to pulper tender for further counseling. PHYSICAL EXAM Exam performed. Vital Signs Reviewed. No edema. COMMENTS: Bilateral AKAs Left chest Permcath OK ADDITIONAL COMMENT COMMENTS: Patient finish rehab and return to his outpatient facility in [facility] under his merchandise team manager Dr. Chinchilla. Signed by: SAMSON DAMICO MD on 07/18/2024 at 04:59:26 PM Transcribed by: SAMSON DAMICO MD on 07/18/2024 at 04:59:26 PM documented in this encounter Plan of Treatment Not on file documented as of this encounter Visit Diagnoses Not on filedocumented in this encounter
--- OUTSIDE RECORDS SUMMARY | 2024-07-29 08:57 | XMS_ITS | Clinical Summary ---
Author Organization [facility], Address [address] [place] [address] Phone Care Team Providers Care Patient Access Name Role Phone Unavailable Primary Care Provider Unavailabl e Allergies Active Allergy Reactions Criticality Noted Date Comments Acetaminophen 05/04/2024 Celiac disease reaction Aspirin 05/04/2024 Possible bleeding of eyes Cephalexin Hives 05/04/2024 Rash Gluten Meal 05/04/2024 Gas,diarrhea Ibuprofen 05/04/2024 Ondansetron 05/04/2024 Wheat 05/04/2024 Celiacs disease Medications labetalol (NORMODYNE) 100 MG tablet Take 100 mg by mouth in the morning and 100 mg in the evening. 04/17/2024 Active torsemide (DEMADEX) 100 MG tablet Take 100 mg by mouth in the morning and 100 mg in the evening. 04/25/2024 Active lactulose (CHRONULAC) 10 GM/15ML solution TAKE 30 ML BY MOUTH THREE TIMES DAILY 02/11/2024 Active atorvastatin (LIPITOR) 80 MG tablet Take 80 mg by mouth 1 (one) time each day 04/04/2024 Active LORazepam (ATIVAN) 2 MG tablet Take 2 mg by mouth every night Active Ferric Citrate 1 GM 210 MG(Fe) tablet Take 2 tablets by mouth in the morning and 2 tablets at noon and 2 tablets in the evening. Active dilTIAZem CD (CARDIZEM CD) 240 MG 24 hr capsule Take 240 mg by mouth 1 (one) time each day Active docusate sodium (COLACE) 100 MG capsule Take 100 mg by mouth in the morning and 100 mg in the evening. Active insulin lispro protamine-insul in lispro (HumaLOG 50-50) (50-50) 100 UNIT/ML inj pen Inject 5 Units under the skin in the morning and 5 Units at noon and 5 Units in the evening. Active insulin lispro (HumaLOG) 100 UNIT/ML injection Inject 1 Units under the skin in the morning and 1 Units at noon and 1 Units in the evening. Inject before meals. Active insulin glargine (LANTUS) 100 UNIT/ML injection Inject 34 Units under the skin every night Active telmisartan (MICARDIS) 80 MG tablet Take 80 mg by mouth 1 (one) time each day Active calcitriol (ROCALTROL) 0.5 MCG capsule Take 0.5 mcg by mouth 3 (three) times a week Active Active Problems Problem Noted Date Diagnosed Date Celiac disease 05/04/2024 Depressive disorder 05/04/2024 Diabetes mellitus with renal manifestations, type I (juvenile type), uncontrolled 05/04/2024 Hyperlipidemia 05/04/2024 End stage renal disease 05/04/2024 Type 2 diabetes mellitus wit h diabetic chronic kidney disease 05/04/2024 Peripheral vascular disease 05/04/2024 Hypertension 05/04/2024 Encounters Date Type Department Care Team Description 07/18/2024 Treatment [facility], [address] [place] [address] Henrique Johnston MD from Last 3 Months Social History Tobacco Use Types Packs/Day Years Used Date Smoking Tobacco: Never Assessed Sex and Gender Information Value Date Recorded Sex Assigned at Not on file Legal Sex Male 11:42 AM EST Gender Identity Not on file Sexual Orientation Not on file Plan of Treatment Health Maintenance Due Date Last Done Comments Pneumococcal Vaccine: Pediat rics (0 to 5 Years) and At-Risk Patients (6 to 64 Years) (1 of 2 - PCV) 1977 Hepatitis B Vaccine (2 of 4 - Risk Dialysis Recombivax 3-dose series) 08/04/2018 07/07/2018, 06/06/2018 Colorectal Cancer Screening: Annual FOBT 2020 Colorectal Cancer Screening: Colonoscopy 2020 Colorectal Cancer Screening: Sigmoidoscopy 2020 Influenza Vaccine (#1) 2024 03/20/2020, 2017 Diabetes: Hemoglobin A1C 05/04/2024 05/30/2018 Diabetes: Ophthalmology Exam 05/04/2024 Diabetes: Pedal Pulse Checked 05/04/2024 Diabetes: Sensory Foot Exam 05/04/2024 Diabetes: Visual Foot Exam 05/04/2024 Insurance * Guarantor: Gennaro Escobedo Account Type Relation to Patient Date of Phone Billing Address Personal/Family Self 1970 [address] [place] [address] MEDICARE [place]ICAID [place]
--- OUTSIDE RECORDS SUMMARY | 2024-07-29 08:57 | XMS_ITS | Encounter Summary ---
Author Organization [facility] Address [address] [place] [address] Care Team Providers Care Machinery Erector Name Role Phone Nevaeh Santiago Primary Care Provi susanna Encounter Details Date Type Department Care Team (Late st Contact Info) Description 10/02/2022 Orders Only [facility] Nuclear Medicine [address] [place], [place] [id number] Jolie Recinos MD [address] [place], [place] [id number] Social History Tobacco Use Types Packs/Day Years Used Date Smoking Tobacco: Never Smokeless Tobacco: Never Alcohol Use Standard Drinks/Week Comments Never 0 (1 standard drink = 0.6 oz pur e alcohol) Sex and Gender Information Value Date Recorded Sex Assigned at Not on file Legal Sex Male 3:26 PM EDT Gender Identity Not on file Sexual Orientation Not on file documented as of this encounter Plan of Treatment Not on file documented as of this encounter Visit Diagnoses Not on filedocumented in this encounter Care Teams Machinery Erector Relationship Specialty Start Date End Date Nevaeh Santiago [address] [place] [address] PCP - General 06/14/20 documented as of this encounter
--- OUTSIDE RECORDS SUMMARY | 2024-07-29 08:58 | XMS_ITS | Clinical Summary ---
Author Organization [facility] Address [address] [place] [address] Care Team Providers Care Soft Work Wrapper Layer And Examiner Name Role Phone Nevaeh Santiago Primary Care Provi susanna Allergies Active Allergy Reactions Criticality Noted Date Comments Acetaminophen Change in bowels 06/06/2018 Aspirin Unknown 05/03/2019 Gluten Diarrhea 05/03/2019 Ibuprofen Unknown 05/03/2019 Cephalexin Rash 06/06/2018 Nsaids (Non-Steroidal Anti-Inflammatory Drug) Unknown 06/06/2018 Medications atenolol (TENORMIN) 25 mg tablet Take 25 mg by mouth daily. Active dilTIAZem CD (CARDIZEM CD) 240 mg 24 hr capsule Take 240 mg by mouth daily. Active oxyCODONE (OXY-IR) 5 mg capsule Take 5 mg by mouth every 4 hours as needed for pain. Active insulin lispro (HumaLOG) injection 100 units/mL vial Inject under the skin 3 times a day with meals. BY INSULIN PUMP Active cyanocobalamin (VITAMIN B12) 100 mcg tablet Take 100 mcg by mouth daily. Active insulin glargine (LANTUS SOLOSTAR) 100 unit/mL insulin pen Only if pump fails Active calcitriol (ROCALTROL) 0.25 mcg capsule once a day. Wed-Wed-Wed Active torsemide (DEMADEX) 100 mg tablet Take 100 mg by mouth daily. 5 04/21/20 19 Active metoclopramide (REGLAN) 10 mg tablet 5 mg 3 times a day with meals. 05/04/20 20 Active omeprazole (PriLOSEC) 20 mg capsule Take 20 mg by mouth daily. 05/04/20 20 Active gabapentin (NEURONTIN) 300 mg capsule Take 300 mg by mouth every other day. 04/30/[address] (CYMBALTA) 30 mg capsule Take 40 mg by mouth once a day. Active Auryxia 210 mg iron tablet TAKE 2 TABLETS BY MOUTH THREE TIMES DAILY WITH MEALS 08/22/19 21 Active ondansetron (ZOFRAN ODT) 4 mg disintegrating tablet 07/09/19 21 Active LORazepam (ATIVAN) 0.5 mg tablet Take 0.5 mg by mouth daily as needed. 12/03/19 21 Active Baqsimi 3 mg/actuation spray,non-aerosol USE 1 SPRAY INTRANASALLY ONCE FOR HYPOGLYCEMIA 01/14/20 21 Active atorvastatin (LIPITOR) 80 mg tablet Take 1 tablet (80 mg total) by mouth once a day. 30 tablet 11/26/19 23 Active Active Problems Problem Noted Date Diagnosed Date Coronary artery disease invo lving [place] coronary artery of [place] heart without angina pectoris 09/12/2020 High risk surgery, pre-operative cardiovascular examination 06/12/2020 Assessment & Plan (06/12/2020 3:40 PM EST): Michael has longstanding type 1 diabetes with multiple complications. His RCRI score is 4, conferring a 15% risk of , [place] or cardiac arrest within 30 days of surgery. His pharmacologic nuclear stress test shows evidence of ischemia in the mid to distal anterolateral wall. While this is suggestive of only single-vessel CAD, I suspect he actually has multivessel disease. I am recommending cardiac catheterization prior to transplant surgery. I have placed a case request. We are drawing precatheterization blood work today. I asked him how he handles his insulin pump preoperatively. In the past what he has done is simply decrease the rate of the pump the morning of the procedure to avoid hypoglycemia. I asked him to do the same thing on the morning of his catheterization. He told me he is not taking aspirin because of a history of bleeding in his eye 15 or 20 years ago. He tells me that prior to his starting Eliquis a couple of months ago, his physician consulted his retinal specialist who approved the Eliquis. We talked about the fact that if he were to undergo PCI during his catheterization, he would need to be on dual antiplatelet therapy for a year. He stated that he would be willing to go ahead with this. 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 Immunizations Name Administration Dates Next Due Covid-19 Monovalent Vaccine, Moderna, mRNA, PF 0 08/21/2020,07/24/2020 Hepatitis A Vaccine, Adult Dosage 06/06/2018 Hepatitis B Vaccine, Dialysis Patient Dosage 03/2018 Hepatitis B adult (ENGERIX-B /RECOMBIVAX HB ADULT) vaccine 1 mL IM 07/07/2018 Influenza, Injectable, Quadrivalent, Preservativ e Free 03/20/2020,06/06/2018 Influenza, Trivalent, MDV, Injectable 05/17/2015 Tetanus Toxoid, Reduced Diph theria Toxoid, and Acellular Pertussis Vaccine, Adsorbed 10/31/2018 Social History Tobacco Use Types Packs/Day Years Used Date Smoking Tobacco: Never Smokeless Tobacco: Never Alcohol Use Standard Drinks/Week Comments Never 0 (1 standard drink = 0.6 oz pur e alcohol) Sex and Gender Information Value Date Recorded Sex Assigned at Not on file Legal Sex Male 3:26 PM EDT Gender Identity Not on file Sexual Orientation Not on file Last Filed Vital Signs Vital Sign Reading Time Taken Comments Blood Pressure 172/103 11/25/2022 3:03 PM EDT Pulse 64 11/25/2022 3:03 PM EDT Temperature 36.2 ??C (97.1 ??F) 03/19/2021 3 :27 PM EDT Respiratory Rate 18 11/25/2022 3:03 PM EDT Oxygen Saturation 98% 11/25/2022 3:0 3 PM EDT Inhaled Oxygen Concentration - - Weight 81 kg (178 lb 9.6 oz) 03/19/2021 3:27 PM EDT with prosthetic Height 185.4 cm (6' 1 ) 03/19/2021 2:22 PM EDT Body Mass Index 23.56 03/19/2021 2:22 PM EDT Plan of Treatment Health Maintenance Due Date Last Done Comments Cologuard 1971 Colon Cancer Screening 1970 Colonoscopy 1971 FOBT / Fit Test 1971 Sigmoidoscopy 1971 Pneumococcal Vaccine: Pediat courtney (0-5 Years) and At-Risk Patients (6-64 Years) (1 of 2 - PCV) 1977 Ophthalmology Exam 1981 Urine Microalbumin 1981 Hemoglobin A1C 11/28/2018 05/30/2018 Hepatitis B Vaccines (3 of 3 - 19+ 3-dose series) 12/05/2018 07/07/2018, 06/06/2018 Basic Metabolic Panel 06/12/2021 06/12/2020, 018 Zoster Vaccines (1 of 2) 2021 COVID-19 Vaccine (5 - 2023-2 5 season) 2024 05/19/2022, 03/06/2021, 08/21/2020, Additional history exists Influenza Vaccine (#1) 2024 , 04/16/2021, 03/20/2020, Additional history exists Alcohol/Substance Use Screening 06/28/2024 Depression Screening and Follow-Up 06/28/2024 Social Drivers of Health Katherine ual Screening 06/28/2024 DTaP,Tdap,and Td Vaccines (2 - Td or Tdap) 10/31/2028 10/31/2018 RSV Vaccine (60+ years old a nd patients) (1 - 1-dose 75+ series) 2046 HIV Screening Completed 03/19/2021, 11/2018, 05/30/2018 Hepatitis C Screening Completed 03/19/2021 , 05/03/2019, 05/30/2018 Procedures * Due to [place] state law, this organization might not be sharing negative HIV tests. Procedure Name Priority Date/Time Associated Diagnosis Comments HEPATITIS C ANTIBODY W/REFLEX TO HCV RNA, QUANTITATIVE PCR Routine 03/19/2021 5:21 PM EDT Awaiting organ transplant Pre-transplant evaluation for kidney and pancreas transplant ESRD (end stage renal disease) (CMS/HCC) (HCC) BASIC METABOLIC PANEL Routine 06/12/2020 3:48 PM EST High risk surgery, pre-operative cardiovascular examination HEMOGLOBIN A1C Routine 05/30/2018 2:16 PM EST Controlled type 1 diabetes mellitus with stage 4 chronic kidney disease (CMS/HCC) Pre-transplant evaluation for CKD (chronic kidney disease) Encounter for pre-transplant evaluation for kidney and pancreas transplant from Last 3 Months or Most Recently Relevant to Health Maintenance Results * Due to [place] state law, this organization might not be sharing negative HIV tests. * Hepatitis C Antibody w/Reflex to HCV RNA, Quantitative PCR (03/19/2021 5:21 PM EDT) Hepatitis C Antibody NON-REACT MARY NON-REACT MARY 03/20/2021 8:41 AM EDT [facility] Signal To Cut-Off 0.01 <1.00 03/20/2021 8:41 AM EDT [facility] Comment: HCV antibody was non-reactive. There is no laboratory evidence of HCV infection. In most cases, no further action is required. However, if recent HCV exposure is suspected, a test for HCV RNA (test code 99552) is suggested. For additional information please refer to http://education.SimpleRegistry/faq/SPY36z9 (This link is being provided for informational/ educational purposes only.) Blood Structure of peripheral vein / Unknown Venipuncture / Unknown 03/19/2021 5:21 PM EDT 03/19/2021 5:33 PM EDT Narrative [facility] - 03/20/2021 8:41 AM EDT [facility] Received Date: us Vlad Patton MD LAB BLOOD ORDERABLES Sally lawler Result [facility] [address] [facility] 3rd Floor, [place] [address], [place] [phone] [facility] [address] [facility] 3rd Floor, [place] [address], [place] [phone] * (ABNORMAL) Basic metabolic panel (06/12/2020 3:48 PM EST) NA 130(L) 135 - 145 mmol/L 06/12/2020 4:31 PM EST [facility] K 4.0 3.5 - 5.3 mmol/L 06/12/2020 4:31 PM EST [facility] Cl 96(L) 97 - 110 mmol/L 06/12/2020 4:31 PM EST [facility] CO2 23(L) 24 - 32 mmol/L 06/12/2020 4:31 PM EST [facility] BUN 44(H) 7 - 23 mg/dL 06/12/2020 4:31 PM EST [facility] Creatinine 3.38(H) 0.60 - 1.30 mg/dL 06/12/2020 4:31 PM EST [facility] Glucose 133(H) 70 - 99 mg/dL 06/12/2020 4:31 PM EST [facility] Calcium 9.3 8.7 - 10.7 mg/dL 06/12/2020 4:31 PM EST [facility] Anion Gap 11 5 - 15 06/12/2020 4:31 PM EST [facility] eGFR Non- 20(L) >=90 mL/min/BSA 06/12/2020 4:31 PM EST [facility] eGFR 23(L) >=90 mL/min/BSA 06/12/2020 4:31 PM [facility] Comment: Units = mL/min/1.73 m2 Glomerular Filtration Rate (GFR) is estimated based on the CKD-EPI Creatinine Equation (2009). Stage ?Description ? GFR 1 ? Normal ? >=90 mL/min/BSA 2 ? Mildly decreased GFR ? 60-89 mL/min/BSA 3 ? Moderately decreased GFR ? 30-59 mL/min/BSA 4 ? Severely decreased GFR ? 15-29 mL/min/BSA 5 ? Kidney Failure ? <15 mL/min/BSA Blood Structure of peripheral vein / Unknown Venipuncture / Unknown 06/12/2020 3:48 PM EST 06/12/2020 4:06 PM EST us Tish Santana MD LAB BLOOD ORDERABLES Final Res ult [facility] [address] [place] [address], * (ABNORMAL) Hemoglobin A1c (05/30/2018 2:16 PM EST) Hemoglobin A1C 7.2(H) <5.7 % of total Hgb 05/31/2018 4:38 AM [facility] Comment: For someone without known diabetes, a hemoglobin A1c value of 6.5% or greater indicates that they may have diabetes and this should be confirmed with a follow-up test. For someone with known diabetes, a value <7% indicates that their diabetes is well controlled and a value greater than or equal to 7% indicates suboptimal control. A1c targets should be individualized based on duration of diabetes, age, comorbid conditions, and other considerations. Currently, no consensus exists regarding use of hemoglobin A1c for diagnosis of diabetes for children. ?? eAG (MG/DL) 160 (calc) 05/31/2018 4:38 AM [facility] eAG (MMOL/L) 8.9 (calc) 05/31/2018 4:38 AM Rising Blood specimen (specimen) Structure of peripheral vein / Unknown Venipuncture / Unknown 05/30/2018 2:16 PM EST 05/30/2018 2:25 PM EST [facility] - 05/31/2018 4:38 AM EST [facility] Received Date: us Vlad Patton MD LAB BLOOD ORDERABLES Sally lawler Result [facility] [address], [place] [address], [place] [phone] [employer] [facility] [address], [place] [address], [place] [phone] from Last 3 Months or Most Recently Relevant to Health Maintenance Insurance Advance Directives Documents on File Type Date Recorded Patient Forest Fire Equipment Operator Expl anation Health Care Proxy 06/09/2018 11:24 AM 03/2018 * Full Code (Latest Code Status on File) Date Activated Date Inactivated Comments 08/15/2020 10:06 AM 08/15/2020 2:58 PM * Full Code Date Activated Date Inactivated Comments 07/03/2020 7:15 AM 08/15/2020 10:06 AM Care Teams Soft Work Wrapper Layer And Examiner Relationship Specialty Start Date End Date Nevaeh Santiago [address] [place] [address] PCP - General 06/14/20
--- OUTSIDE RECORDS SUMMARY | 2024-07-29 08:58 | XMS_ITS | Referral Summary ---
Author Organization [facility] Address [address] [place] [address] Care Team Providers Care Municipal Court Judge Name Role Phone Nevaeh Santiago Primary Care [...] Diagnosed Date Coronary artery disease invo lving [place] coronary artery of [place] heart without angina pectoris 09/12/2020 High risk surgery, pre-operative cardiovascular examination 06/12/2020 Assessment & Plan (06/12/2020 3:40 PM EST): Michael has longstanding type 1 diabetes with multiple complications. His RCRI score is 4, conferring a 15% risk of , [place] or cardiac arrest within 30 days of [...] 03/19/2021 2:22 PM EDT Plan of Treatment Not on file Procedures * Due to [place] law, this organization might not be sharing [...] to Health Maintenance Results * Due to [place] [employer] [place] law, this organization might not be sharing negative HIV tests. * Hepatitis C Antibody w/Reflex to HCV RNA, Quantitative PCR (03/19/2021 5:21 PM EDT) Hepatitis C Antibody NON-REACT MARY NON-REACT MARY 03/20/2021 8:41 AM EDT [facility] Signal To Cut-Off 0.01 <1.00 03/20/2021 8:41 AM EDT [facility] Comment: HCV antibody was non-reactive. There is no laboratory evidence of HCV infection. In most cases, no further action is required. However, if recent HCV exposure is suspected, a test for HCV RNA (test code 01445) is suggested. For additional information please refer to http://education.A[employer]/faq/EMH64d2 (This link is being provided for informational/ educational purposes only.) Blood Structure of peripheral vein / Unknown Venipuncture / Unknown 03/19/2021 5:21 PM EDT 03/19/2021 5:[address] [facility] 03/20/2021 8:41 AM EDT [facility] Received Date: us Vlad Patton MD LAB BLOOD ORDERABLES Sally nuris Result [facility] [address] [facility] 3rd Floor, [place] [address], [place] [phone] [facility] [address] [facility] 3rd Floor, [place] [address], [place] [phone] * (ABNORMAL) Basic metabolic panel (06/12/2020 3:48 [...] eGFR 23(L) >=90 mL/min/BSA 06/12/2020 4:31 PM EST [facility] Comment: Units = [...] Res ult [facility] [address] [place] [address], * (ABNORMAL) Hemoglobin A1c (05/30/2018 2:16 PM EST) Hemoglobin A1C 7.2(H) <5.7 % of total Hgb 05/31/2018 4:38 AM EST [facility] Comment: For someone without known diabetes, a [...] eAG (MG/DL) 160 (calc) 05/31/2018 4:38 AM EST [facility] eAG (MMOL/L) 8.9 (calc) 05/31/2018 4:38 AM EST [facility] Blood specimen (specimen) Structure of peripheral vein / Unknown Venipuncture / Unknown 05/30/2018 2:16 PM EST 05/30/2018 2:25 PM EST Narrative [facility] - 05/31/2018 4:38 AM EST [facility] Received Date:[id number] Vlad Patton MD LAB BLOOD ORDERABLES Sally l Result [facility] [address] [facility] [address]rd Floor, [place] [address], [facility] [employer] [facility] [address] [facility] 3rd Floor, [place] [address], [place] [phone] from Last 3 Months or Most Recently Relevant to Health Maintenance Insurance [employer] [facility] [employer] [place]D [place]ED[place] [id number] [employer] [facility] [employer] Advance Directives Documents on File Type Date Recorded Patient Platen Builder Up Expl anation Health Care Proxy 06/09/2018 11:24 AM 03/2018 * Full Code (Latest Code Status on File) Date Activated Date Inactivated Comments 08/15/2020 10:06 AM 08/15/2020 2:58 PM * Full Code Date Activated Date Inactivated Comments 07/03/2020 7:15 AM 08/15/2020 10:[address] Judge Relationship Specialty Start Date End Date Nevaeh Santiago [address] [place] [address] PCP - General 06/14/20
== END 2024-07-29 08:57 | disposition home or self-care (01) ==
LOC: HO.MMNH2L 08:56
PROVIDERS: Visit Provider Student in an Organized Health Care Education/Training Program
DX: Z13.89 Encounter for screening for other disorder (principal)

== ENCOUNTER 2024-08-01 14:00 | Outpatient (REF) | payer SELFPAY ==
--- OUTSIDE RECORDS SUMMARY | 2024-08-01 14:37 | XMS_ITS | Encounter Summary ---
Author Organization [facility], Address [address] [place] [address] Phone Care Team Providers Care Tone Artist Apprentice Name Role Phone Unavailable Primary Care Provider Unavailabl e Encounter Details Date Type Department Care Team (Late st Contact Info) Description 07/18/2024 Treatment [facility], [address] [place] [address] Samson Damico MD [address] [place] [address] Social History Tobacco Use Types [...] 2 diabetes mellitus with diabetic nephropathy Attending Front Maker: SAMSON DAMICO Dialysis Location: [facility] Schedule: Shift: 2 OVERVIEW COMMENTS: [...] not at goal. Potassium controlled. Referred to robotype operator for further counseling. PHYSICAL EXAM Exam performed. Vital Signs Reviewed. No edema. COMMENTS: Bilateral AKAs Left chest Permcath [place] ADDITIONAL COMMENT COMMENTS: Patient finish rehab and return to his outpatient facility in [facility] under his vice president research Dr. Chinchilla. Signed by: SAMSON DAMICO MD on 07/18/2024 at 04:59:26 PM Transcribed by: SAMSON DAMICO MD on 07/18/2024 at 04:59:26 PM documented in this encounter Plan of Treatment Not on file documented as of this encounter Visit Diagnoses Not on filedocumented in this encounter
--- OUTSIDE RECORDS SUMMARY | 2024-08-01 14:37 | XMS_ITS | Clinical Summary ---
Author Organization [facility] Address [address] [place] [address] Care Team Providers Care Whitewasher Name Role Phone Nevaeh Santiago Primary Care [...] Diagnosed Date Coronary artery disease invo lving [place] coronary artery of [place] heart without angina pectoris 09/12/2020 High risk surgery, pre-operative cardiovascular examination 06/12/2020 Assessment & Plan (06/12/2020 3:40 PM EST): Michael has longstanding type 1 diabetes with multiple complications. His RCRI score is 4, conferring a 15% risk of , [place] or cardiac arrest within 30 days of [...] , 05/03/2019, 05/30/2018 Procedures * Due to [place] state law, this organization might not be [...] to Health Maintenance Results * Due to [place] state law, this organization might not be sharing negative HIV tests. * Hepatitis C Antibody w/Reflex to HCV RNA, Quantitative PCR (03/19/2021 5:21 PM EDT) Hepatitis C Antibody NON-REACT MARY NON-REACT MARY 03/20/2021 8:41 AM EDT [employer] [facility] Signal To Cut-Off 0.01 <1.00 03/20/2021 8:41 AM EDT [employer] Comment: HCV antibody was non-reactive. There is no laboratory evidence of HCV infection. In most cases, no further action is required. However, if recent HCV exposure is suspected, a test for HCV RNA (test code 94566) is suggested. For additional information please refer to http://education.Kinnser Software/faq/VBE07a3 (This link is being provided for informational/ educational purposes only.) Blood Structure of peripheral vein / Unknown Venipuncture / Unknown 03/19/2021 5:21 PM EDT 03/19/2021 5:33 PM EDT Narrative [facility] - 03/20/2021 8:41 AM EDT [facility] Received Date: us Vlad Patton MD LAB BLOOD ORDERABLES Sally lawler Result [facility] [address] [facility] 3rd Floor, [place] [address], [place] [phone] [employer] [facility] [address] [facility] 3rd Floor, [place] [address], [place] [phone] * (ABNORMAL) Basic metabolic panel (06/12/2020 3:48 PM EST) NA 130(L) 135 - 145 mmol/L 06/12/2020 4:31 PM EST [facility] K 4.0 3.5 - 5.3 mmol/L 06/12/2020 4:31 PM EST [facility] Cl 96(L) 97 - 110 mmol/L 06/12/2020 4:31 PM EST [facility] CO2 23(L) 24 - 32 mmol/L 06/12/2020 4:31 PM EST [facility] BUN 44(H) 7 - 23 mg/dL 06/12/2020 4:31 PM EST [facility] Creatinine 3.38(H) 0.60 - 1.30 mg/dL 06/12/2020 4:31 PM EST [facility] Glucose 133(H) 70 - 99 mg/dL 06/12/2020 4:31 PM EST [facility] Calcium 9.3 8.7 - 10.7 mg/dL 06/12/2020 4:31 PM EST [facility] Anion Gap 11 5 - 15 06/12/2020 4:31 PM EST [facility] eGFR Non- 20(L) >=90 mL/min/BSA 06/12/2020 4:31 PM EST [facility] eGFR 23(L) >=90 mL/min/BSA 06/12/2020 4:31 PM [facility] Comment: Units = [...] MD LAB BLOOD ORDERABLES Final Res ult [facility] [address] [place] [address], * (ABNORMAL) Hemoglobin A1c (05/30/2018 2:16 PM EST) Hemoglobin A1C 7.2(H) <5.7 % of total Hgb 05/31/2018 4:38 AM [facility] Comment: For someone without known diabetes, a [...] eAG (MG/DL) 160 (calc) 05/31/2018 4:38 AM [facility] eAG (MMOL/L) 8.9 (calc) 05/31/2018 4:38 AM [facility] Blood specimen (specimen) Structure of peripheral vein / Unknown Venipuncture / Unknown 05/30/2018 2:16 PM EST 05/30/2018 2:25 PM EST [facility] - 05/31/2018 4:38 AM EST [facility] Received Date: us Vlad Patton MD LAB BLOOD ORDERABLES Sally lawler Result [facility] [address], [place] [address], [place] [phone] [employer] [facility] [address], [place] [address], [place] [phone] from Last 3 Months or Most Recently Relevant to Health Maintenance Insurance Advance Directives Documents on File Type Date Recorded Patient Landing Support Specialist Expl anation Health Care Proxy 06/09/2018 11:24 AM 03/2018 * Full Code (Latest Code Status on File) Date Activated Date Inactivated Comments 08/15/2020 10:06 AM 08/15/2020 2:58 PM * Full Code Date Activated Date Inactivated Comments 07/03/2020 7:15 AM 08/15/2020 10:06 AM Care Teams Whitewasher Relationship Specialty Start Date End Date Nevaeh Santiago [address] [place] [address] PCP - General 06/14/20
--- OUTSIDE RECORDS SUMMARY | 2024-08-01 14:37 | XMS_ITS | Clinical Summary ---
Author Organization [facility], Address [address] [place] [address] Phone Care Team Providers Care Pre Sales Technical Consultant Name Role Phone Unavailable Primary Care Provider [...] Treatment [facility], [address] [place] [address] Henrique Johnston MD from Last 3 Months [...] Phone Billing Address Personal/Family Self 1970 [address] [facility] [place] [address] MEDICARE [place]ICAID [place]
--- OUTSIDE RECORDS SUMMARY | 2024-08-01 14:37 | XMS_ITS | Encounter Summary ---
Author Organization [facility] Address [address] [place] [address] Care Team Providers Care Immunology Teacher Name Role Phone Nevaeh Santiago Primary Care Provi susanna Encounter Details Date Type Department Care Team (Late st Contact Info) Description 10/02/2022 Orders Only [facility] Nuclear Medicine [address] [place], [place] [phone] Jolie Recinos MD [address] [place], [place] [phone] Social History Tobacco Use Types Packs/Day Years [...] on filedocumented in this encounter Care Teams Immunology Teacher Relationship Specialty Start Date End Date Nevaeh Santiago [address] [place] [address] PCP - General 06/14/20 documented as of this encounter
--- OUTSIDE RECORDS SUMMARY | 2024-08-01 14:37 | XMS_ITS | Referral Summary ---
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 His RCRI score is 4, conferring a 15% risk of , [place] or cardiac arrest within 30 days of [...] Not on file Procedures * Due to [place] [employer] law, this organization might not be sharing [...] to Health Maintenance Results * Due to [place] [employer] law, this organization might not be sharing negative HIV tests. * Hepatitis C Antibody w/Reflex to HCV RNA, Quantitative PCR (03/19/2021 5:21 PM EDT) Hepatitis C Antibody NON-REACT MARY NON-REACT MARY 03/20/2021 8:41 AM EDT [facility] Signal To Cut-Off 0.01 <1.00 03/20/2021 8:41 AM EDT [facility] Comment: HCV antibody was non-reactive. There is no laboratory evidence of HCV infection. In most cases, no further action is required. However, if recent HCV exposure is suspected, a test for HCV RNA (test code 83289) is suggested. For additional information please refer to http://education.Erydel/faq/VSY72l3 (This link is being provided for informational/ educational purposes only.) Blood Structure of peripheral vein / Unknown Venipuncture / Unknown 03/19/2021 5:21 PM EDT 03/19/2021 5:33 PM EDT [facility] 03/20/2021 8:41 AM EDT [facility] Received Date: us Vlad Patton MD LAB BLOOD ORDERABLES Sally nuris Result [facility] [address], [place] [address], [place] [phone] [employer] [facility] [address], [place] [address], [place] [phone] * (ABNORMAL) Basic metabolic panel (06/12/2020 3:48 PM EST) NA 130(L) 135 - 145 mmol/L 06/12/2020 4:31 PM EST [facility] K 4.0 3.5 - 5.3 mmol/L 06/12/2020 4:31 PM EST [facility] Cl 96(L) 97 - 110 mmol/L 06/12/2020 4:31 PM EST [facility] CO2 23(L) 24 - 32 mmol/L 06/12/2020 4:31 PM EST [facility] BUN 44(H) 7 - 23 mg/dL 06/12/2020 4:31 PM EST [facility] Creatinine 3.38(H) 0.60 - 1.30 mg/dL 06/12/2020 4:31 PM EST [facility] Glucose 133(H) 70 - 99 mg/dL 06/12/2020 4:31 PM EST [facility] Calcium 9.3 8.7 - 10.7 mg/dL 06/12/2020 4:31 PM EST [facility] Anion Gap 11 5 - 15 06/12/2020 4:31 PM EST [facility] eGFR Non- 20(L) >=90 mL/min/BSA 06/12/2020 4:31 PM EST [facility] eGFR 23(L) >=90 mL/min/BSA 06/12/2020 4:31 PM EST [facility] Comment: Units = [...] MD LAB BLOOD ORDERABLES Final Res ult [facility] [address] [place] [address], * (ABNORMAL) Hemoglobin A1c (05/30/2018 2:16 PM EST) Hemoglobin A1C 7.2(H) <5.7 % of total Hgb 05/31/2018 4:38 AM EST [facility] Comment: For someone without known diabetes, a [...] (MG/DL) 160 (calc) 05/31/2018 4:38 AM EST [facility] eAG (MMOL/L) 8.9 (calc) 05/31/2018 4:38 AM EST [facility] Blood specimen (specimen) Structure of peripheral vein / Unknown Venipuncture / Unknown 05/30/2018 2:16 PM EST 05/30/2018 2:25 PM EST Narrative [facility] - 05/31/2018 4:38 AM EST [facility] Received Date:[id number] Vlad Patton MD LAB BLOOD ORDERABLES Sally l Result [facility] [address], [place] [address], [facility] [facility] [address], [place] [address], [place] [phone] from Last 3 Months or Most Recently Relevant to Health Maintenance Insurance [employer] [facility] [employer] [place] [id number] [employer] [facility] [employer] Advance Directives Documents on File Type Date Recorded Patient Health Promotion Specialist Expl anation Health Care Proxy 06/09/2018 11:24 AM 03/2018 * Full Code (Latest Code Status on File) Date Activated Date Inactivated Comments 08/15/2020 10:06 AM 08/15/2020 2:58 PM * Full Code Date Activated Date Inactivated Comments 07/03/2020 7:15 AM 08/15/2020 10:06 AM Care Teams Director Oracle Database Relationship Specialty Start Date End Date Nevaeh Santiago [address] [place] [address] PCP - General 06/14/20
[2024-08-01 14:38] LABS: MANUAL DIFF FLAG NO
[2024-08-01 14:41] LABS: Basophils Absolute Auto 0.1 X10*3/uL (0.0-0.2); Basophils Percent Auto 1.1 % (0-2); Eosinophils Absolute Auto 0.1 X10*3/uL (0.0-0.4); Eosinophils Percent Auto 1.7 % (0-4); Hematocrit 31.6 % (42.0-52.0); Hemoglobin 10.4 g/dl (14.0-18.0); Imm Gran Abs Auto 0.02 X10*3/uL (0.00-0.03); Imm Gran Pct Auto 0.3 % (0.0-0.4); Lymphocytes Absolute Auto 1.2 X10*3/uL (1.2-4.9); Lymphocytes Percent Auto 17.8 % (20-40); Mean Corpuscular HGB Conc 32.9 g/dl (31.0-36.0); Mean Corpuscular Hemoglobin 30.9 pg (27.0-33.0); Mean Corpuscular Volume 93.8 fL (80.0-98.0); Mean Platelet Volume 10.4 fL (9.4-12.4); Monocytes Absolute Auto 0.8 X10*3/uL (0.1-1.2); Monocytes Percent Auto 12.4 % (2-11); Neutrophils Absolute Auto 4.3 x10*3/uL (2.0-8.3); Neutrophils Percent Auto 66.7 % (45-73); Platelet Count 288 X10*3/uL (160-400); Red Blood Count 3.37 X10*6/uL (4.60-5.80); Red Cell Distribution Width 14.8 % (11.0-16.0); White Blood Count 6.5 X10*3/uL (4.8-10.8)
[2024-08-01 14:53] LABS: Alanine Aminotransferase 21 U/L (0-40); Albumin Level 3.9 g/dL (3.5-5.0); Alkaline Phosphatase 157 U/L (39-117); Anion Gap 18 (12-20); Aspartate Amino Transferase 30 U/L (5-37); Bilirubin Total 0.6 mg/dL (0.0-1.0); Blood Urea Nitrogen 17 mg/dL (9-16); Carbon Dioxide 28 mmol/L (22-29); Chloride 92 mmol/L (96-108); Estimated Glomerular Filt Rate 45; Glucose Random 134 mg/dL (60-115); Potassium 3.4 mmol/L (3.3-5.1); Sodium 135 mmol/L (135-145); Total Protein 7.8 g/dL (6.5-8.0)
== END 2024-08-01 14:01 | disposition home or self-care (01) ==
LOC: HO.LNP 14:00
PROVIDERS: Visit Provider Nurse Practitioner
DX: M62.59 Muscle wasting and atrophy, not elsewhere classified, multiple sites (principal); I50.20 Unspecified systolic (congestive) heart failure; I23.6 Thrombosis of atrium, auricular appendage, and ventricle as current complications following acute myocardial infarction
CPT/HCPCS: 80053; 85025